=== PATIENT | male | born 1975 | race Caucasian/White ===

== ENCOUNTER 2020-06-05 23:04 | Emergency (ER) | payer SELFPAY ==
[~2020-06-05] VITALS: Ht 188 cm; Wt 86.2 kg
[2020-06-05 23:30] VITALS: BP 133/78
[2020-06-06] MEDS ORDERED: IPRATROPIUM BROM 0.5 MG/2.5ML INH SOL NEB ONE (00:45)
[2020-06-06] MEDS ORDERED: ALBUTEROL SULF 2.5 MG/0.5ML(0.5%) NEB SOLN NEB ONE (00:45)
[2020-06-06] MEDS ORDERED: cefTRIAXone W LIDOCAINE 1 GM IM IM ONE (04:00)
[2020-06-06] MEDS ORDERED: QUEtiapine FUMARATE 25 MG TAB PO ONE (04:15)
[2020-06-06 04:43] LABS: Basophils # (auto) 0.1 10 ^3/uL (0-0.2); Basophils % (auto) 1.3 % (0.0-2.0); Eosinophils # (auto) 0.2 10 ^3/uL (0-0.8); Eosinophils % (auto) 2.3 % (0.0-7.0); Hematocrit 43.7 % (41.0-53.0); Hemoglobin 14.2 g/dL (13.5-17.5); Lymphocytes # (auto) 2.7 10 ^3/uL (0.4-5.4); Lymphocytes % (auto) 30.1 % (10.0-50.0); Mean Corpuscular Hemoglobin 28.8 pg (28.0-32.0); Mean Corpuscular Hgb Conc. 32.6 g/dL (32.0-36.0); Mean Corpuscular Volume 88.3 fL (80.0-100.0); Monocytes # (auto) 0.7 10 ^3/uL (0-1.3); Monocytes % (auto) 7.8 % (0.0-12.0); Neutrophils # (auto) 5.2 10 ^3/uL (1.6-8.6); Neutrophils % (auto) 58.5 % (37.0-80.0); Nucleated Red Blood Cells % 0.1 %; Platelet Count (auto) 300 10^3/uL (140-450); Red Blood Cells 4.94 10^6/uL (4.5-5.90); Red Cell Distribution Width 15.4 % (11.8-14.3); White Blood Cell 8.8 10^3/uL (4.4-10.8)
[2020-06-06 04:51] LABS: Potassium 3.2 mmol/L (3.5-5.1)
[2020-06-06 05:00] LABS: Albumin 3.1 g/dL (3.4-5.0); BUN/Creatinine Ratio 13.4; Bilirubin, Total 0.4 mg/dL (0.2-1.0); Calcium 8.2 mg/dL (8.5-10.1); Total Protein 6.7 g/dL (6.4-8.2)
== END 2020-06-06 03:53 | disposition home or self-care (01) ==
LOC: ER 23:04 → EDBD 23:04 → ER 06-06 03:53
DX: F20.5 Residual schizophrenia (principal); L03.113 Cellulitis of right upper limb; J42 Unspecified chronic bronchitis; F17.210 Nicotine dependence, cigarettes, uncomplicated
CPT/HCPCS: 36415; 71045; 80053; 80320; 83605; 85025; 94640; 99284; J7644; J0696

== ENCOUNTER 2020-06-07 11:44 | Emergency (ER) | payer SELFPAY ==
[~2020-06-07] VITALS: Ht 188 cm; Wt 83.9 kg
[2020-06-07 11:54] VITALS: BP 142/82
== END 2020-06-07 12:06 | disposition left against medical advice (07) ==
LOC: EDBD 11:44 → EDUNIT# 11:44 → ER 11:44
DX: R44.3 Hallucinations, unspecified (principal); Z53.21 Procedure and treatment not carried out due to patient leaving prior to being seen by health care provider

== ENCOUNTER → 2020-06-07 | Emergency (ER) | payer SELFPAY ==
[~2020-06-07] VITALS: Ht 188 cm; Wt 78.5 kg
[~2020-06-07] MED LIST: HALOPERIDOL LACTATE 5 MG/ML INJ VIAL IM ONE; HALOPERIDOL LACTATE 5 MG/ML INJ VIAL ONE; LORazepam 2MG/ML-1ML VIAL IM ONE; LORazepam 2MG/ML-1ML VIAL ONE; diphenhdrAMINE HCL 50 MG/1 ML VL IM ONE; diphenhdrAMINE HCL 50 MG/1 ML VL ONE
[2020-06-07 21:33] VITALS: BP 135/99
[2020-06-07 22:52] LABS: Basophils # (auto) 0.1 10 ^3/uL (0-0.2); Basophils % (auto) 0.9 % (0.0-2.0); Eosinophils # (auto) 0.3 10 ^3/uL (0-0.8); Eosinophils % (auto) 2.9 % (0.0-7.0); Hematocrit 42.3 % (41.0-53.0); Hemoglobin 13.8 g/dL (13.5-17.5); Lymphocytes # (auto) 2.6 10 ^3/uL (0.4-5.4); Lymphocytes % (auto) 27.5 % (10.0-50.0); Mean Corpuscular Hemoglobin 28.5 pg (28.0-32.0); Mean Corpuscular Hgb Conc. 32.7 g/dL (32.0-36.0); Monocytes # (auto) 0.6 10 ^3/uL (0-1.3); Monocytes % (auto) 6.7 % (0.0-12.0); Nucleated Red Blood Cells % 0.1 %; Platelet Count (auto) 371 10^3/uL (140-450); Red Blood Cells 4.86 10^6/uL (4.5-5.90); Red Cell Distribution Width 15.2 % (11.8-14.3); White Blood Cell 9.6 10^3/uL (4.4-10.8)
[2020-06-07 23:13] LABS: Albumin 3.2 g/dL (3.4-5.0); Calcium 8.4 mg/dL (8.5-10.1); Potassium 3.3 mmol/L (3.5-5.1); Salicylate 4.2 mg/dL (2.8-20.0)
[2020-06-07 23:15] LABS: BUN/Creatinine Ratio 13.5
[2020-06-07 23:18] LABS: Bilirubin, Total 0.2 mg/dL (0.2-1.0); Total Protein 6.9 g/dL (6.4-8.2)
[2020-06-07 23:20] LABS: Acetaminophen < 2.0 ug/mL (10-30)
== END | disposition home or self-care (01) ==
LOC: EDUNIT# 21:24 → ER 21:27 → EDBD 21:27
DX: R45.851 Suicidal ideations (principal); R44.0 Auditory hallucinations; F17.210 Nicotine dependence, cigarettes, uncomplicated; I10 Essential (primary) hypertension
CPT/HCPCS: 36415; 80053; 80329; 85025; 96372; 99285; J1200; J1630; J2060

== ENCOUNTER 2020-06-11 00:35 | Emergency (ER) | payer SELFPAY ==
[~2020-06-11] VITALS: Ht 188 cm; Wt 80.7 kg
[2020-06-11 00:51] VITALS: BP 122/77
== END 2020-06-11 00:59 ==
LOC: ER 00:37
DX: Z53.21 Procedure and treatment not carried out due to patient leaving prior to being seen by health care provider